=== PATIENT | male | born 1950 | race Caucasian/White ===

== ENCOUNTER 2022-07-13 07:35 | Day surgery (SDC) | payer OTHER ==
[~2022-07-13] VITALS: Ht 165.1 cm; Wt 90.7 kg
[2022-07-13] MEDS ORDERED: LIDOCAINE 2% 100 MG/5 ML UJET TP ONE (08:09)
[2022-07-13] MEDS ORDERED: diphenhydrAMINE 50 MG/ML VIAL ONE (08:09)
[2022-07-13] MEDS ORDERED: fentaNYL citrate 0.05 MG/ML VIAL ONE (08:09)
[2022-07-13] MEDS ORDERED: MIDAZOLAM 5 MG/5 ML VIAL ONE (08:09)
[2022-07-13] MEDS ORDERED: MIDAZOLAM 2 MG/2 ML VIAL IVP ONE (12:10)
[2022-07-13] MEDS ORDERED: fentaNYL citrate 0.05 MG/ML VIAL IVP ONE (12:10)
== END 2022-07-13 10:00 | disposition home or self-care (01) ==
LOC: MMU 07:35 → MDS 07:35
PROVIDERS: ATTEND Internal Medicine Gastroenterology
DX: Z12.11 Encounter for screening for malignant neoplasm of colon (principal); K63.5 Polyp of colon; E78.00 Pure hypercholesterolemia, unspecified; Z20.822 Contact with and (suspected) exposure to COVID-19; Z79.899 Other long term (current) drug therapy
CPT/HCPCS: 45385; 87426; J2250; J3010; J1200